=== PATIENT | male | born 1995 | race Two or more races ===

== ENCOUNTER 2021-03-22 09:30 | Outpatient (CLI) | payer OTHER | END 2021-03-22 09:42 | disposition home or self-care (01) | LOC: RAD 09:30 | PROVIDERS: ATTEND Urology | DX: N28.89 Other specified disorders of kidney and ureter (principal); N40.1 Benign prostatic hyperplasia with lower urinary tract symptoms; R31.21 Asymptomatic microscopic hematuria; N20.0 Calculus of kidney ==

== ENCOUNTER 2024-02-22 08:56 | Outpatient (CLI) | payer OTHER | END 2024-02-22 09:04 | disposition home or self-care (01) | LOC: SONOGRAMA 08:56 | PROVIDERS: ATTEND Urology | DX: R31.21 Asymptomatic microscopic hematuria (principal); N40.1 Benign prostatic hyperplasia with lower urinary tract symptoms; R35.0 Frequency of micturition ==